=== PATIENT | male | born 1940 | race Two or more races ===

== ENCOUNTER 2024-10-12 12:28 | Emergency (ER) | payer OTHER ==
[~2024-10-12] VITALS: Ht 175.3 cm; Wt 72.6 kg
[2024-10-12] MEDS ORDERED: FAMOTIDINE/PF 20 MG/2 ML VIAL ONE (14:29)
[2024-10-12] MEDS ORDERED: FAMOTIDINE/PF 20 MG/2 ML VIAL IV ONE (14:30)
[2024-10-12] MEDS ORDERED: 0.9 % SODIUM CHLORIDE 500 ML IV ONE (14:30)
[2024-10-12 14:59] LABS: HEMATOCRIT 41.9 % (39.0-48.0); HEMOGLOBIN 14.4 g/dL (13-16.00); MEAN CORPUSCULAR HGB CONC 34.4 g/dl (32.0-36.0); PLATELET COUNT 169 K/uL (150-450); RED CELL DISTRIBUTION WIDTH 13.5 % (11.5-14.5)
[2024-10-12 15:23] LABS: ALBUMIN 3.4 gm/dL (3.4-5.0); BILIRUBIN TOTAL 0.59 mg/dL (0.3-1.2); CALCIUM 8.9 mg/dL (8.5-10.1); CREATININE SERUM 1.09 mg/dL (0.70-1.30); GFR 64.14; GLOBULINA 4.3 G/DL (2.4-3.5); POTASSIUM 4.04 mEq/L (3.5-5.1); TOTAL PROTEIN 7.7 gm/dL (6.4-8.2)
[2024-10-12 16:31] LABS: PH,URINE 6.5 (5.0-8.0); URINE APPEARANCE Clear; URINE BILIRRUBIN Negative (NEGATIVE); URINE BLOOD Negative; URINE COLOR Yellow; URINE GLUCOSE Negative (NEGATIVE); URINE KETONE Negative (NEGATIVE); URINE LEUKOCYTE Negative; URINE NITRATE Negative; URINE PROTEIN Negative (NEGATIVE); URINE UROBILINOGEN 0.2 E.U./dl
[2024-10-12 16:36] LABS: URINE BACTERIA 24.4 uL (0.0-1933); URINE EPITHELIAL CELLS 3.3 uL (0.0-38.8); URINE RBC 6.3 uL (0.0-20.8); URINE WBC 15.7 uL (0.0-23.2)
[2024-10-12 16:43] LABS: URINE CAST 0.14 uL (0.0-1.40)
== END 2024-10-12 17:25 ==
LOC: ER 12:28
PROVIDERS: General Practice
DX: B34.9 Viral infection, unspecified (principal); R53.1 Weakness; Z20.822 Contact with and (suspected) exposure to COVID-19; R07.89 Other chest pain